=== PATIENT | female | born 1985 | race African-American/Black ===

== ENCOUNTER 2019-05-02 17:25 | Emergency (ER) | payer SELFPAY ==
[2019-05-02] MEDS ORDERED: Dexamethasone 10 MG/ML VIAL ONE (17:43)
[2019-05-02] MEDS ORDERED: Ketorolac Tromethamine 60 MG/2 ML VIAL ONE (17:43)
[2019-05-02] MEDS ORDERED: Clindamycin 300 MG/2 ML VIAL ONE (17:43)
== END 2019-05-02 18:29 | disposition home or self-care (01) ==
LOC: MADERS 17:25
DX: J02.0 Streptococcal pharyngitis (principal)
CPT/HCPCS: 87430; 87804; 96372; 99283; J1100; J1885; J3490